=== PATIENT | female | born 1935 | race Caucasian/White ===

== ENCOUNTER 2025-07-18 19:26 | Inpatient (IN) | payer MEDICARE, MEDICAID ==
[2025-07-18] MEDS: methylPREDNISolone Sodium Succinate 125 MG/2 ML SDV IVPUSH ONE (19:45)
[2025-07-18 19:46] LABS: BASOPHILS ABSOLUTE AUTO 0.04 10^3/uL (0.00-0.10); BASOPHILS PERCENT AUTO 0.5 % (0.0-1.0); EOSINOPHILS ABSOLUTE AUTO 0.02 10^3/uL (0.10-0.30); EOSINOPHILS PERCENT AUTO 0.2 % (1.0-3.0); IMMATURE GRAN ABSOLUTE AUTO 0.02 10^3/uL (0.00-0.04); IMMATURE GRAN PERCENT AUTO 0.2 % (0.0-0.4); LYMPHOCYTES ABSOLUTE AUTO 0.89 10^3/uL (1.00-4.00); LYMPHOCYTES PERCENT AUTO 10.4 % (20.0-40.0); MEAN PLATELET VOLUME 8.4 fL (7.4-10.4); MONOCYTES ABSOLUTE AUTO 0.94 10^3/uL (0.10-0.80); MONOCYTES PERCENT AUTO 10.9 % (2.0-8.0); NEUTROPHILS ABSOLUTE AUTO 6.68 10^3/uL (2.50-7.00); NEUTROPHILS PERCENT AUTO 77.8 % (50.0-70.0); PLATELET COUNT,PLT 239 10^3/uL (150-400); RED BLOOD CELL COUNT 4.44 10^6/uL (3.80-5.50); RED CELL DISTRIBUTION WIDTH 13.0 % (11.5-14.5); WHITE BLOOD CELL COUNT,WBC 8.59 10^3/uL (5.00-10.00)
[2025-07-18 20:04] LABS: ALANINE AMINOTRANSFERASE,ALT 24.0 U/L (14-63); ASPARTATE AMNIOTRANSFERASE,AST 16.0 U/L (15-37); BILIRUBIN TOTAL 0.6 mg/dL (0.2-1.0); BLOOD UREA NITROGEN,BUN 13.0 mg/dL (7-18); CARBON DIOXIDE,CO2 28.2 mmol/L (21.0-32.0); CHLORIDE,CL 101.0 mmol/L (98-107); CREATININE 0.94 mg/dL (0.51-1.17); EST CRCL DRUG DOSING (CG) 30.29 mL/min; GLUCOSE RANDOM 138.0 mg/dL (70-140); POTASSIUM,K 3.7 mmol/L (3.5-5.1); PROTEIN TOTAL,TP 8.4 g/dL (6.4-8.2); SODIUM,NA 140.0 mmol/L (136-145)
[2025-07-18 20:09] LABS: ESTIMATED GFR 59.0 mL/min (>=60)
[2025-07-18 20:11] LABS: B-TYPE NATRIURETIC PEPTIDE,BNP 109.0 pg/mL (0-100)
[2025-07-18 20:17] LABS: BASE EXCESS ARTERIAL,POC -0 mmol/L ((-2)-3); HCO3 ARTERIAL,POC 24.2 mmol/L (21-28); O2 SATURATION ARTERIAL,POC 94.9 % (94-98); PCO2 ARTERIAL,POC 39 mmHg (35-48); PH ARTERIAL,POC 7.41 pH (7.35-7.45); PO2 ARTERIAL,POC 75 mmHg (83-108); TCO2 ARTERIAL,POC 23 mmol/L (22-29)
[2025-07-18 21:47] LABS: INFLUENZA A NAA NEGATIVE (NEGATIVE); INFLUENZA B NAA NEGATIVE (NEGATIVE); RESPIRATORY SYNCYTIAL VIR NAA NEGATIVE (NEGATIVE)
[2025-07-18 21:48] LABS: CORONAVIRUS COVID-19 NAA NEGATIVE (NEGATIVE)
[2025-07-19] MEDS: methylPREDNISolone Sodium Succinate 125 MG/2 ML SDV IVPUSH SCH (00:05)
[2025-07-19 07:50] LABS: BASOPHILS ABSOLUTE AUTO 0.01 10^3/uL (0.00-0.10); BASOPHILS PERCENT AUTO 0.2 % (0.0-1.0); EOSINOPHILS ABSOLUTE AUTO 0.00 10^3/uL (0.10-0.30); EOSINOPHILS PERCENT AUTO 0.0 % (1.0-3.0); IMMATURE GRAN ABSOLUTE AUTO 0.01 10^3/uL (0.00-0.04); IMMATURE GRAN PERCENT AUTO 0.2 % (0.0-0.4); LYMPHOCYTES ABSOLUTE AUTO 0.60 10^3/uL (1.00-4.00); LYMPHOCYTES PERCENT AUTO 10.5 % (20.0-40.0); MEAN PLATELET VOLUME 8.5 fL (7.4-10.4); MONOCYTES ABSOLUTE AUTO 0.16 10^3/uL (0.10-0.80); MONOCYTES PERCENT AUTO 2.8 % (2.0-8.0); NEUTROPHILS ABSOLUTE AUTO 4.95 10^3/uL (2.50-7.00); NEUTROPHILS PERCENT AUTO 86.3 % (50.0-70.0); PLATELET COUNT,PLT 210 10^3/uL (150-400); RED BLOOD CELL COUNT 3.84 10^6/uL (3.80-5.50); RED CELL DISTRIBUTION WIDTH 13.0 % (11.5-14.5); WHITE BLOOD CELL COUNT,WBC 5.73 10^3/uL (5.00-10.00)
[2025-07-19 08:06] LABS: BLOOD UREA NITROGEN,BUN 16.0 mg/dL (7-18); CARBON DIOXIDE,CO2 26.7 mmol/L (21.0-32.0); CHLORIDE,CL 106.0 mmol/L (98-107); CREATININE 0.87 mg/dL (0.51-1.17); EST CRCL DRUG DOSING (CG) 32.72 mL/min; ESTIMATED GFR 64.0 mL/min (>=60); GLUCOSE RANDOM 157.0 mg/dL (70-140); POTASSIUM,K 4.3 mmol/L (3.5-5.1); SODIUM,NA 141.0 mmol/L (136-145)
[2025-07-19 08:36] LABS: APPEARANCE,URINE CLEAR (CLEAR); GLUCOSE,URINE NEGATIVE (NEGATIVE); OCCULT BLOOD,URINE TRACE-LYSED (NEGATIVE)
[2025-07-19 08:49] LABS: EPITHELIAL CELLS,URINE FEW /LPF
[2025-07-19] MEDS: methylPREDNISolone Sodium Succinate 40 MG/1 ML SDV IVPUSH SCH (11:10)
[2025-07-19] MEDS: Ondansetron 4 MG/2 ML SDV IVPUSH PRN (11:49)
[2025-07-19] MEDS: guaiFENesin/Dextromethorphan 100-10 MG/5 ML Soln 5 ML Cup PO PRN (17:13)
[2025-07-21] MEDS: guaiFENesin 100 MG/5 ML Soln 5 ML UD Cup PO SCH (11:40)
[2025-07-21] MEDS: Phenol 1.4% Oral Spray 177 ML Bottle MUCMEM PRN (11:45)
[2025-07-21] MEDS: methylPREDNISolone Sodium Succinate 40 MG/1 ML SDV IVPUSH SCH (21:26)
== END 2025-07-22 13:14 | DRG 190 ==
LOC: KA.ED 19:26 → KA.MS 21:15
PROVIDERS: ADMIT Internal Medicine; ATTEND Internal Medicine
PROC: 3E03329 Introduction of Other Anti-infective into Peripheral Vein, Percutaneous Approach (ICD-10-PCS; principal; 2025-07-18)
PROC: 4A033R1 Measurement of Arterial Saturation, Peripheral, Percutaneous Approach (ICD-10-PCS; principal; 2025-07-18)
DX: J44.1 Chronic obstructive pulmonary disease with (acute) exacerbation (principal); J96.21 Acute and chronic respiratory failure with hypoxia; J44.9 Chronic obstructive pulmonary disease, unspecified; Z66 Do not resuscitate; E86.0 Dehydration; H54.7 Unspecified visual loss; H91.90 Unspecified hearing loss, unspecified ear; F41.9 Anxiety disorder, unspecified; Z99.81 Dependence on supplemental oxygen; Z79.899 Other long term (current) drug therapy; Z87.891 Personal history of nicotine dependence
CPT/HCPCS: 36600; 71045; 80053; 82803; 83605; 83880; 84484; 85025; 87040; 87637; 93010; 94640; 96361; 96374; 99284; 99285; A9270 ×2; J7030 ×2; 36415; 80048; 81001; 99223-GT; 99232-GT; 99233-GT; 99239-GT; J0456; J1650; J2405; J2919; J7050; Q3014